=== PATIENT | female | born 1990 | race Caucasian/White ===

== ENCOUNTER 2020-09-17 05:54 | Inpatient (IN) | payer BC, OTHER ==
[~2020-09-17] VITALS: Ht 170.2 cm; Wt 77.6 kg
[2020-09-17 06:21] LABS: HEMOGLOBIN 12.7 gm/dl (12.3-15.3); RED BLOOD COUNT 3.81 M/UL (4.00-5.10); WHITE BLOOD COUNT 8.7 K/UL (4.5-11.0)
[2020-09-18 06:37] LABS: HEMOGLOBIN 11.6 gm/dl (12.3-15.3)
[2020-09-18] MEDS ORDERED: IBUPROFEN600 MG PO (11:48)
[2020-09-18] MEDS ORDERED: DOCUSATE SODIU100 MG PO (11:48)
== END 2020-09-18 18:27 | disposition home or self-care (01) | DRG 807 ==
LOC: OB 05:54
PROVIDERS: ADMIT Obstetrics & Gynecology
PROC: 10E0XZZ Delivery of Products of Conception, External Approach (ICD-10-PCS; principal; 2020-09-17)
PROC: 3E033VJ Introduction of Other Hormone into Peripheral Vein, Percutaneous Approach (ICD-10-PCS; 2020-09-17)
PROC: 10907ZC Drainage of Amniotic Fluid, Therapeutic from Products of Conception, Via Natural or Artificial Opening (ICD-10-PCS; 2020-09-17)
DX: O36.5930 Maternal care for other known or suspected poor fetal growth, third trimester, not applicable or unspecified (principal); Z37.0 Single live birth; Z3A.37 37 weeks gestation of pregnancy
CPT/HCPCS: 36415; 81001; 82800; 85014; 85018; 85025; 90715; J0595; J2590; J2795